=== PATIENT | male | born 1945 | race Two or more races ===

== ENCOUNTER 2017-07-11 06:22 | Inpatient (IN) | payer SELFPAY ==
[~2017-07-11] VITALS: Ht 30.5 cm; Wt 97.2 kg
[2017-07-11] MEDS ORDERED: LIDOCAINE W/ EPINEPHRINE 1 % INJ 30ML ONE (07:10)
[2017-07-11] MEDS ORDERED: BUPIVACAINE 0.25% INJ 50ML VIAL ONE (07:10)
[2017-07-11] MEDS ORDERED: LIDOCAINE W/ EPINEPHRINE 1% 20ML VIAL ONE ×2 (07:10→07:11)
[2017-07-11] MEDS ORDERED: ceFOXitin 2GM/100ML D5W 100 ML IV ONE (07:20)
[2017-07-11] MEDS ORDERED: ROCURONIUM 10MG/ML 10ML VIAL IV ONE (07:35)
[2017-07-11] MEDS ORDERED: fentaNYL CITRATE 0 ML ONE (07:42)
[2017-07-11] MEDS ORDERED: PHENYLEPHRINE HCL 10 MG/ML VL ONE (08:19)
[2017-07-11] MEDS ORDERED: ePHEDrine SULFATE 50 MG/ML AMP ONE (08:19)
[2017-07-11] MEDS ORDERED: ONDANSETRON HCL 4 MG/2 ML VIAL ONE (08:19)
[2017-07-11] MEDS ORDERED: PROPOFOL 10 MG/ML 20 ML IV ONE (08:19)
[2017-07-11] MEDS ORDERED: LIDOCAINE HCL 2 %PF INJ 10ML AMP IJ ONE (08:19)
[2017-07-11] MEDS ORDERED: METOPROLOL TARTRATE 1MG/1ML-5ML VIAL IV ONE (08:19)
[2017-07-11] MEDS ORDERED: DEXAMETHASONE SOD PHOS 10MG/1ML VIAL INJ ONE (08:19)
[2017-07-11] MEDS ORDERED: fentaNYL CITRATE 5 ML ONE ×2 (08:36→09:33)
[2017-07-11] MEDS ORDERED: GLYCOPYRROLATE 0.2 MG/ML 1ML VIAL ONE (10:04)
[2017-07-11] MEDS ORDERED: NEOSTIGMINE 1 MG/ML INJ (10mg/10ML VIAL) ONE (10:04)
[2017-07-11] MEDS ORDERED: fentaNYL CITRATE 100 MCG/2 ML VL ONE (10:06)
[2017-07-11] MEDS ORDERED: HYDROmorphone HCL 2 MG/ML VL IV PRN ×2 (10:15→10:30)
[2017-07-11] MEDS ORDERED: ACETAMINOPHEN/CODEINE#3 (300/30mg) TAB PO PRN (10:15)
[2017-07-11] MEDS ORDERED: diphenhdrAMINE HCL 50 MG/1 ML VL IV PRN (10:15)
[2017-07-11] MEDS ORDERED: ONDANSETRON HCL 4 MG/2 ML VIAL IV PRN (10:15)
[2017-07-11] MEDS ORDERED: LABETALOL HCL 5 MG/ML 4ML SYRINGE IV PRN (10:30)
[2017-07-11] MEDS ORDERED: hydrALAZINE HCL 20 MG/ML VL IV PRN (10:30)
[2017-07-11] MEDS ORDERED: NALOXONE HCL 0.4 MG/ML VIAL IV PRN (10:30)
[2017-07-11] MEDS ORDERED: ONDANSETRON HCL 4 MG/2 ML VIAL IV ONE (10:30)
[2017-07-11 11:01] LABS: BUN/Creatinine Ratio 9.6; Calcium 8.5 mg/dL (8.5-10.1); Potassium 3.9 mmol/L (3.5-5.1)
[2017-07-11] MEDS ORDERED: IRBE300T26 PO (13:33)
[2017-07-11] MEDS ORDERED: ASPI81CH43 PO (13:33)
[2017-07-11] MEDS: CEFOXITIN SODIUM 1 GM in D5W 5% 50 ML IV SCH ×2 (13:44→18:14)
[2017-07-11] MEDS: D5W/SOD CHL 0.45% 1,000 ML IV SCH ×2 (13:45→18:14)
[2017-07-11 17:00] VITALS: BP 119/63
[2017-07-11 20:00] VITALS: BP 126/70
[2017-07-11 22:00] VITALS: BP 126/70
[2017-07-12] MEDS: D5W/SOD CHL 0.45% 1,000 ML IV SCH ×2 (01:12→10:11)
[2017-07-12] MEDS: CEFOXITIN SODIUM 1 GM in D5W 5% 50 ML IV SCH (01:13)
[2017-07-12 05:00] VITALS: BP 129/71
[2017-07-12 07:33] VITALS: BP 114/78
== END 2017-07-12 12:30 | disposition home or self-care (01) | DRG 708 ==
LOC: SUR 06:22 → TELE-DOU 06:23 → EAST 13:00
PROVIDERS: ADMIT Urology; ATTEND Urology
PROC: 07BJ4ZZ Excision of Left Inguinal Lymphatic, Percutaneous Endoscopic Approach (ICD-10-PCS; 2017-07-11)
PROC: 07BH4ZZ Excision of Right Inguinal Lymphatic, Percutaneous Endoscopic Approach (ICD-10-PCS; 2017-07-11)
PROC: 8E0W4CZ Robotic Assisted Procedure of Trunk Region, Percutaneous Endoscopic Approach (ICD-10-PCS; 2017-07-11)
PROC: 0VT04ZZ Resection of Prostate, Percutaneous Endoscopic Approach (ICD-10-PCS; principal; 2017-07-11 07:35)
DX: C61 Malignant neoplasm of prostate (principal); I10 Essential (primary) hypertension; Z85.528 Personal history of other malignant neoplasm of kidney; Z88.2 Allergy status to sulfonamides
CPT/HCPCS: 36415; 80048; 86850; 86900; 86901; J0694; J1100; J2405; J2704; J3490; J7060